=== PATIENT | male | born 1930 | race Caucasian/White ===

== ENCOUNTER 2016-09-06 18:46 | Observation (INO) | payer MEDICARE ==
[~2016-09-06] VITALS: Ht 182.9 cm; Wt 80.0 kg
[~2016-09-06 18:46] MED LIST: ALPH200C2 PO; ASPI1TAB69 PO; BETAX.25%O EACH EYE; CHOL100025 CHEW; COQ1100C PO; GALA8TAB PO; GINK120C4 PO; HYDR-3533 PO; LOSA50TA PO; LYRI50CA PO; METO25TA3 PO; NITR1SUB3 SL; NOVOLOGP2 SQ; PRESCAP5 PO; SIMV20TA PO; TERA2CAP3 PO; VITA100021 SL; ZINC50TA PO; ZOLP10TA3 PO
[2016-09-06 18:49] VITALS: BP 200/86; PULSE 63; RESP 18; TEMP 98.7; O2SAT 98
[2016-09-06] MEDS ORDERED: SODIUM CHLORIDE 0.9% FLUSH 5 ML FLUSH IVF PRN (19:15)
[2016-09-06 19:32] LABS: AUTOMATED NEUTROPHIL # 2.9 TH/MM3 (1.8-7.7); BASOPHIL % 0.5 % (0.0-2.0); EOSINOPHIL # 0.1 TH/MM3 (0-0.4); HEMATOCRIT 36.9 % (39.0-51.0); HEMO FLAGS DIFF FINAL; LYMPH % 26.7 % (9.0-44.0); LYMPHOCYTE # 1.3 TH/MM3 (1.0-4.8); MEAN CELL VOLUME 92.5 FL (80.0-100.0); MEAN CORPUSCULAR HGB CONC 34.5 % (32.0-36.0); MONO % 9.2 % (0.0-8.0); NEUT % 60.6 % (16.0-70.0); PLATELET COUNT 129 TH/MM3 (150-450); RED BLOOD COUNT 3.99 MIL/MM3 (4.50-5.90); RED CELL DISTRIBUTION WIDTH 13.4 % (11.6-17.2); WHITE BLOOD COUNT 4.8 TH/MM3 (4.0-11.0)
--- NOTE | 2016-09-06 19:35 | PD ---
HPI Chief Complaint: Neuro Symptoms/ Deficits Time Seen by Provider: 19:05 Travel History International Travel<30 days: No Contact w/Intl Traveler<30days: No Traveled to known affect area: No History of Present Illness HPI Patient 86-year-old male presents emergency department for tremors according to EVAC, according the patient he states "I think stopping happened me this morning and my heart". Patient states his been shaking of her since then. Denies any pain in his chest abdomen pelvis extremities. Patient is oriented to self only at this time. Patient's arrives and states that he has a history of vascular dementia but has never had tremors like this before and she is concerned that she is not going to take care of him at home. She states he's been shaking all over intermittently but denies loss of consciousness. She states that he is not complaining of any chest pain shortness of breath to her. She states that she has not noticed any focal weakness or facial droop. PFSH Past Medical History Hx Anticoagulant Therapy: No Arthritis: Yes Asthma: No Autoimmune Disease: No Blood Disorders: No Anxiety: No Depression: No Heart Rhythm Problems: No Cancer: Yes (PROSTATE) Cardiac Catheterization: Yes Cardiovascular Problems: Yes High Cholesterol: Yes Chemotherapy: No Chest Pain: Yes Congestive Heart Failure: No COPD: No Cerebrovascular Accident: No Coronary Artery Disease: Yes Diabetes: Yes Diminished Hearing: No Endocrine: Yes GERD: No Glaucoma: Yes Genitourinary: No Headaches: No Hepatitis: No Hiatal Hernia: No Hypertension: Yes Immune Disorder: No Kidney Stones: No Musculoskeletal: Yes Neurologic: No Psychiatric: No Reproductive: No Respiratory: No Migraines: No Myocardial Infarction: No Radiation Therapy: No Renal Failure: No Seizures: No Sickle Cell Disease: No Sleep Apnea: No Thyroid Disease: No Ulcer: No Past Surgical History Abdominal Surgery: No AICD: No Appendectomy: No Arteriovenous Shunt: No Cardiac Surgery: Yes (CABG 2004) Cholecystectomy: No Coronary Artery Bypass Graft: Yes Ear Surgery: No Endocrine Surgery: No Eye Surgery: Yes (CATARACT [id number]) Genitourinary Surgery: No Gynecologic Surgery: No Insulin Pump: No Joint Replacement: No Neurologic Surgery: No Oral Surgery: No Pacemaker: No Thoracic Surgery: No Other Surgery: Yes Social History Alcohol Use: Yes (GLASS WINE DAILY) Tobacco Use: No Substance Use: No Allergies-Medications (Allergen,Severity, Reaction): Coded Allergies: Effient (Verified Allergy, Severe, Hives, 07/25/16) Lisinopril (Verified Allergy, Severe, cough, 07/25/16) Plavix (Verified Allergy, Unknown, 07/25/16) Reported Meds & Prescriptions Reported Meds & Active Scripts Active Lortab (Hydrocodone-Acetaminophen) 5-325 Mg Tab 1 Tab PO Q6H PRN Reported Novolin 70-30 Inj (Insulin Human Isoph/Insulin Regular) 1,000 Unit/10 Ml Vial 14 Units SQ AC DINNER Novolin 70-30 Inj (Insulin Human Isoph/Insulin Regular) 1,000 Unit/10 Ml Vial 24 Units SQ AC BREAKFAST Preservision Areds 2 (Multiple Vitamins W/ Minerals) 1 Cap 1 Cap PO DAILY Ginkgo Biloba 120 Mg Cap 1 Cap PO DAILY Alpha Lipoic Acid 200 Mg Cap 200 Mg PO DAILY Vitamin D3 (Cholecalciferol) 1,000 Unit Chew 1,000 Units CHEW DAILY Coq10 (Coenzyme Q10 (Ubidecarenone)) 100 Mg Cap 1 Tab PO DAILY Zinc 50 Mg Tab 50 Mg PO DAILY Vitamin B-12 (Cyanocobalamin) 1,000 Mcg Subl 1,000 Mcg SL DAILY Zolpidem (Zolpidem Tartrate) 10 Mg Tab 10 Mg PO HS PRN Betoptic-S Opth Drops (Betaxolol HCl) 0.25% Susp 1 Drop EACH EYE BID Nitroglycerin SL (Nitroglycerin) 0.4 Mg Subl 0.4 Mg SL DIRECTED PRN ONE TABLET UNDER THE TONGUE NEEDED FOR CHEST PAIN, MAY REPEAT EVERY FIVE MINUTES FOR A TOTAL OF 3 DOSES OR CALL 911 IF NO RELIEF Lyrica (Pregabalin) 50 Mg Cap 50 Mg PO DAILY Aspirin 81 Mg Tabdr 81 Mg PO DAILY Galantamine (Galantamine Hydrobromide) 8 Mg Tab 16 Mg PO DAILY Terazosin (Terazosin HCl) 2 Mg Cap 4 Mg PO HS Losartan (Losartan Potassium) 50 Mg Tab 50 Mg PO DAILY Metoprolol Tartrate 25 Mg Tab 25 Mg PO BID Simvastatin 20 Mg Tab 20 Mg PO DAILY Review of Systems ROS Limitations: Altered Mental Status Physical Exam Narrative GENERAL: Well-developed well-nourished in no apparent distress SKIN: Warm and dry. HEAD: Atraumatic. Normocephalic. EYES: Pupils equal and round. No scleral icterus. No injection or drainage. ENT: No nasal bleeding or discharge. Mucous membranes pink and moist. NECK: Trachea midline. No JVD. CARDIOVASCULAR: Regular rate and rhythm. No murmur appreciated. RESPIRATORY: No accessory muscle use. Clear to auscultation. Breath sounds equal bilaterally. GASTROINTESTINAL: Abdomen soft, non-tender, nondistended. Hepatic and splenic margins not palpable. MUSCULOSKELETAL: No obvious deformities. No clubbing. No cyanosis. No edema. NEUROLOGICAL: Awake and alert oriented to self only.. Cranial nerves II through XII are grossly intact and nonfocal, 5 out of 5 strength in all 4 extremities. Patient elicits some jerking motions as well as some ataxia in both upper extremities. More limited ataxia in the lower extremities. When testing the patient's reflexes in the lower extremities patient jumps in the upper extremities and likewise on tests and the reflexes in the upper extremities patient jumps in the lower extremities PSYCHIATRIC: Appropriate mood and affect; insight and judgment normal. Data Data Last Documented VS Vital Signs Date Time Temp Pulse Resp B/P Pulse Ox O2 Delivery O2 Flow Rate FiO2 09/06/16 19:22 Nasal Cannula 2 09/06/16 18:49 98.7 63 18 200/86 98 Orders Electrocardiogram (09/06/16 19:06) Ckmb (Isoenzyme) Profile (09/06/16 19:06) Complete Blood Count With Diff (09/06/16 19:06) Comprehensive Metabolic Panel (09/06/16 19:06) Magnesium (Mg) (09/06/16 19:06) Prothrombin Time / Inr (Pt) (09/06/16 19:06) Act Partial Throm Time (Ptt) (09/06/16 19:06) Troponin I (09/06/16 19:06) Ecg Monitoring (09/06/16 19:06) Bilateral Bp Monitoring (09/06/16 19:06) Iv Access Insert/Monitor (09/06/16 19:06) Oximetry (09/06/16 19:06) Oxygen Administration (09/06/16 19:06) Sodium Chloride 0.9% Flush (Ns Flush) (09/06/16 19:15) Ct Brain W/O Iv Contrast(Rout) (09/06/16 ) Chest, Single Ap (09/06/16 ) Admit Order (Ed Use Only) (09/06/16 ) Labs Laboratory Tests Test 09/06/16 19:15 White Blood Count 4.8 TH/MM3 Red Blood Count 3.99 MIL/MM3 Hemoglobin 12.7 GM/DL Hematocrit 36.9 % Mean Corpuscular Volume 92.5 FL Mean Corpuscular Hemoglobin 32.0 PG Mean Corpuscular Hemoglobin 34.5 % Concent Red Cell Distribution Width 13.4 % Platelet Count 129 TH/MM3 Mean Platelet Volume 10.4 FL Neutrophils (%) (Auto) 60.6 % Lymphocytes (%) (Auto) 26.7 % Monocytes (%) (Auto) 9.2 % Eosinophils (%) (Auto) 3.0 % Basophils (%) (Auto) 0.5 % Neutrophils # (Auto) 2.9 TH/MM3 Lymphocytes # (Auto) 1.3 TH/MM3 Monocytes # (Auto) 0.4 TH/MM3 Eosinophils # (Auto) 0.1 TH/MM3 Basophils # (Auto) 0.0 TH/MM3 CBC Comment DIFF FINAL Differential Comment Prothrombin Time 11.8 SEC Prothromb Time International 1.1 RATIO Ratio Activated Partial 26.6 SEC Thromboplast Time Sodium Level 139 MEQ/L Potassium Level 4.4 MEQ/L Chloride Level 103 MEQ/L Carbon Dioxide Level 27.6 MEQ/L Anion Gap 8 MEQ/L Blood Urea Nitrogen 18 MG/DL Creatinine 1.07 MG/DL Estimat Glomerular Filtration 66 ML/MIN Rate Random Glucose 314 MG/DL Calcium Level 8.3 MG/DL Magnesium Level 2.0 MG/DL Total Bilirubin 0.6 MG/DL Aspartate Amino Transf 15 U/L (AST/SGOT) Alanine Aminotransferase 20 U/L (ALT/SGPT) Alkaline Phosphatase 91 U/L Total Creatine Kinase 81 U/L Troponin I LESS THAN 0.02 NG/ML Total Protein 6.3 GM/DL Albumin 3.4 GM/DL [facility] Medical Decision Making Medical Screen Exam Complete: Yes Emergency Medical Condition: Yes Differential Diagnosis Electrolyte imbalance including hyponatremia, acute cerebral CVA seems unlikely , cerebellar dysfunction as a possibility, cerebellar stroke is possible. Narrative Course Patient 86-year-old male with quite a convoluted presentation. He has these jumping and ataxic motions of the upper extremities. Lower limit of lower externa is. He is able to ambulate to the bathroom albeit with some unsteadiness but does not to appear to be having any truncal ataxia. CT head is negative elect lites within normal limits. I discussed with the patient and his that they could consider doing outpatient workup for these symptoms. His is concerned for his safety at home and wishes for him to be admitted for further workup I am amenable to this. Patient was discussed with Dr. Kenn Watson will admit for further workup. Diagnosis Primary Impression: Tremors of nervous system Additional Impression: Ataxia Admitting Information Admitting Physician Requests: Observation Condition: Stable Christiano Bledsoe MD Sep 06, 2016 19:34
[2016-09-06 19:44] LABS: APTT (PATIENT) 26.6 SEC (24.3-30.1); INTERNATIONAL NORMALIZED RATIO 1.1 RATIO; PROTHROMBIN TIME - PATIENT 11.8 SEC (9.8-11.6)
[2016-09-06 19:55] LABS: ANION GAP 8 MEQ/L (5-15); AST (GOT) 15 U/L (15-37); BICARBONATE 27.6 MEQ/L (21.0-32.0); BLOOD UREA NITROGEN 18 MG/DL (7-18); CHLORIDE 103 MEQ/L (98-107); GLOMERULAR FILTRATION RATE 66 ML/MIN (>89); POTASSIUM 4.4 MEQ/L (3.5-5.1); SODIUM (NA) 139 MEQ/L (136-145)
[2016-09-06 20:00] LABS: ALKALINE PHOSPHATASE 91 U/L (45-117); ALT (GPT) 20 U/L (12-78); TOTAL BILIRUBIN ADULT 0.6 MG/DL (0.2-1.0)
[2016-09-06 20:04] LABS: CREATINE KINASE 81 U/L (39-308)
--- NOTE | 2016-09-06 21:05 | RADRPT ---
EXAM DATE/TIME: 09/06/2016 20:02 [facility] COMPARISON: CHEST SINGLE AP, July 25, 2016, 9:46. INDICATIONS : Patient has been short of breath since this morning. MEDICAL HISTORY : Diabetes mellitus type II. SURGICAL HISTORY : None. ENCOUNTER: Initial ACUITY: 1 day PAIN SCORE: 0/10 LOCATION: Bilateral chest FINDINGS: No infiltrate, effusion or pneumothorax demonstrated. Heart size stable, upper limits of normal. Patient has had previous median sternotomy. CONCLUSION: No evidence of acute cardiopulmonary disease. Jose Juan Freitas MD on September 06, 2016 at 21:03 Board Certified Radiologist. This report was verified electronically.
--- NOTE | 2016-09-06 21:14 | RADRPT ---
EXAM DATE/TIME: 09/06/2016 20:41 [facility] COMPARISON: No previous studies available for comparison. INDICATIONS : Altered mental status today. RADIATION DOSE: 56.35 CTDIvol (mGy) MEDICAL HISTORY : Cardiovascular disease. Hypertension. Carcinoma, prostate. SURGICAL HISTORY : CABG ENCOUNTER: Initial ACUITY: 1 day PAIN SCALE: 0/10 LOCATION: cranial TECHNIQUE: Multiple contiguous axial images were obtained of the head. Using automated exposure control and adj ustment of the mA and/or kV according to patient size, radiation dose was kept as low as reasonably a chievable to obtain optimal diagnostic quality images. FINDINGS: CEREBRUM: The ventricles are normal for age. No evidence of midline shift, mass lesion, hemorrhage or acute in farction. No extra-axial fluid collections are seen. Chronic low attenuation seen in the periventric ular white matter. POSTERIOR FOSSA: The cerebellum and brainstem are intact. The 4th ventricle is midline. The cerebellopontine angle i s unremarkable. EXTRACRANIAL: The visualized portion of the orbits is intact. SKULL: The calvaria is intact. No evidence of skull fracture. CONCLUSION: No acute intracranial abnormality demonstrated. Mild chronic white matter changes. Jose Juan Freitas MD on September 06, 2016 at 21:12 Board Certified Radiologist. This report was verified electronically.
[2016-09-06] MEDS ORDERED: ONDANSETRON HCL 4 MG/2 ML VIAL IVP PRN (22:30)
[2016-09-06] MEDS ORDERED: NALOXONE HCL 0.4 MG/ML AMP IV PRN (22:30)
[2016-09-06] MEDS ORDERED: SODIUM CHLORIDE 0.9% FLUSH 5 ML FLUSH FLUSH PRN (22:30)
[2016-09-06] MEDS ORDERED: ACETAMINOPHEN 325 MG TAB PO PRN (22:30)
[2016-09-06] MEDS ORDERED: BISACODYL 10 MG SUPP PR PRN (22:30)
[2016-09-06] MEDS ORDERED: TERAZOSIN HCL 1 MG CAP PO SCH (22:30)
[2016-09-06] MEDS ORDERED: MAGNESIUM HYDROXIDE SUSP 30 ML CUP PO PRN (22:30)
[2016-09-06] MEDS ORDERED: NOVO7030P2 SQ ×2 (22:37)
[2016-09-07] VITALS (8 sets, daily range): BP systolic 131–190; BP diastolic 65–91; PULSE 9–92; RESP 16–20; TEMP 96.7–98.4; O2SAT 94–100
--- NOTE | 2016-09-07 00:11 | RADRPT ---
EXAM DATE/TIME: 09/06/2016 22:54 [facility] COMPARISON: No previous studies available for comparison. INDICATIONS : TIA. MEDICAL HISTORY : Myocardial infarction. Hypertension. Hypercholesterolemia. Prostate cancer. SURGICAL HISTORY : CABG. Cataract surgery bilateral. ENCOUNTER: Initial ACUITY: 1 day PAIN SCORE: 0/10 LOCATION: Bilateral neck PEAK SYSTOLIC VELOCITIES (cm/sec): ICA/CCA RATIO: Right: 1.7 Left: 1.2 ICA: Right: 104 Left: 92 CCA: Right: 61 Left: 79 ECA: Right: 66 Left: 159 VERTEBRAL: Right: 45 antegrade Left: 45 antegrade Elevated flow velocities and ICA/CCA ratios have been found to correlate with increased degrees of vessel stenosis, calculated as percentage of diameter relative to a normal segment of distal ICA/CCA FINDINGS: RIGHT CAROTID: There is mild calcified and noncalcified plaque in the carotid bulbs. The waveforms are within anastacia l limits. LEFT CAROTID: There are calcified nodules in plaque in the carotid bulb. The waveforms are within normal limits. VERTEBRAL ARTERIES: Antegrade flow is seen in both vertebral arteries. MISCELLANEOUS: None. CONCLUSION: 1. Mild atherosclerotic disease within the carotid bulbs bilaterally. However, velocity measurements indicate less than 50% stenosis. 2. There is antegrade flow within both vertebral arteries. Jose Juan Price MD on September 07, 2016 at 0:08 Board Certified Radiologist. This report was verified electronically.
[2016-09-07] MEDS: METOPROLOL TARTRATE 25 MG TAB PO SCH ×2 (00:14→08:08)
[2016-09-07] MEDS: BETAXOLOL HCL 0.25% EACH EYE SCH ×2 (00:15→08:07)
[2016-09-07] MEDS: 1/2 NS + KCL 20 MEQ INJ 1,000 ML IV SCH ×2 (00:16→11:07)
[2016-09-07 04:47] LABS: AUTOMATED NEUTROPHIL # 2.9 TH/MM3 (1.8-7.7); BASOPHIL % 0.4 % (0.0-2.0); EOSINOPHIL # 0.1 TH/MM3 (0-0.4); EOSINOPHIL % 2.5 % (0.0-4.0); HEMATOCRIT 34.6 % (39.0-51.0); HEMO FLAGS DIFF FINAL; LYMPH % 21.7 % (9.0-44.0); MEAN CELL VOLUME 92.3 FL (80.0-100.0); MEAN CORPUSCULAR HEMOGLOBIN 31.9 PG (27.0-34.0); MEAN CORPUSCULAR HGB CONC 34.5 % (32.0-36.0); NEUT % 66.4 % (16.0-70.0); PLATELET COUNT 114 TH/MM3 (150-450); RED BLOOD COUNT 3.75 MIL/MM3 (4.50-5.90); RED CELL DISTRIBUTION WIDTH 13.3 % (11.6-17.2); WHITE BLOOD COUNT 4.4 TH/MM3 (4.0-11.0)
[2016-09-07 05:11] LABS: ANION GAP 6 MEQ/L (5-15); BICARBONATE 28.4 MEQ/L (21.0-32.0); BLOOD UREA NITROGEN 21 MG/DL (7-18); CHLORIDE 105 MEQ/L (98-107); GLOMERULAR FILTRATION RATE 77 ML/MIN (>89); POTASSIUM 4.1 MEQ/L (3.5-5.1); SODIUM (NA) 139 MEQ/L (136-145)
[2016-09-07 05:37] LABS: FREE T4 1.26 NG/DL (0.76-1.46)
[2016-09-07] MEDS: INSULIN ASPART SUPPLEMENTAL SCALE SQ SCH ×3 (05:54→16:31)
[2016-09-07] MEDS ORDERED: LOSARTAN 50 MG TAB PO SCH (09:00)
[2016-09-07] MEDS ORDERED: ASPIRIN EC 81 MG TABEC PO SCH (09:00)
[2016-09-07] MEDS ORDERED: PREGABALIN 25 MG CAP PO SCH (09:00)
[2016-09-07] MEDS ORDERED: PRAVASTATIN SOD 40 MG TAB PO SCH (09:00)
[2016-09-07] MEDS ORDERED: SODIUM CHLORIDE 0.9% FLUSH 5 ML FLUSH FLUSH SCH (09:00)
[2016-09-07] MEDS ORDERED: GALANTAMINE HYDROBROMIDE 4 MG TAB PO SCH (09:00)
--- NOTE | 2016-09-07 10:41 | HHI.HP ---
HPI Service [facility] Hospitalists Primary Care Physician Dru Gutiérrez MD Admission Diagnosis Ataxia Travel History International Travel<30 Days: No Contact w/Intl Traveler <30 Da: No Traveled to Known Affected Are: No History of Present Illness Mr. Cobos is an 86 y/o male with IDDM, HTN, CAD with hx of KS, hyperlipidemia, and vascular dementia. Pt presented to the ED on 09/06/16 with complaints of being shaky and unsteady on his feet. Pt has a hx of tremors but this was reportedly worse than tremors he has had in the past. Head CT noted no acute intracranial abnormality and mild chronic white matter changes. Pts did not feel that she could handle him at home. Pt was admitted for further workup of his tremors and ataxia and for SNF placement. Pts reports that they have had issues controlling his blood sugars at home. They have had some recent medication changes by the Graphic Design Teacher to NovoLog Mix 70/30 24-26 units in the AM and 14 units in PM. Review of Systems Neurologic: COMPLAINS OF: Abnormal gait, Tremor Past Family Social History Past Medical History Alzheimer's dementia Essential tremor CAD with hx of KS s/p CABG and stenting IDDM Peripheral neuropathy HTN Hyperlipidemia GERD Glaucoma PVD Pulmonary nodules noted on CT in 07/1016 [facility] followed by GI Hx of prostate cancer Past Surgical History CABG x 3 PTCA with stenting Bilateral cataract surgery Bilateral blepharoplasty in 2006 Prostate biopsy Reported Medications -Zolpidem 10 Mg PO HS PRN -Betoptic-S Opth Drops 0.25% Susp 1 Drop EACH EYE BID -Nitroglycerin SL (Nitroglycerin) 0.4 Mg Subl 0.4 Mg SL DIRECTED PRN -Aspirin 81 Mg PO DAILY -Galantamine 16 Mg PO DAILY -Terazosin 4 Mg PO HS -Metoprolol Tartrate 25 Mg PO BID -Simvastatin 20 Mg PO DAILY -Novolin 70-30 Inj 14 Units SQ AC DINNER -Novolin 70-30 Inj 24 Units SQ AC BREAKFAST --Lyrica 50 Mg PO DAILY PRN --Losartan 50 Mg PO DAILY (?BID) ?Lortab 5-325 Mg Tab 1 Tab PO Q6H PRN Preservision Areds 2 (Multiple Vitamins W/ Minerals) 1 Cap 1 Cap PO DAILY Ginkgo Biloba 120 Mg Cap 1 Cap PO DAILY Alpha Lipoic Acid 200 Mg Cap 200 Mg PO DAILY Vitamin D3 (Cholecalciferol) 1,000 Unit Chew 1,000 Units CHEW DAILY Coq10 (Coenzyme Q10 (Ubidecarenone)) 100 Mg Cap 1 Tab PO DAILY Zinc 50 Mg Tab 50 Mg PO DAILY Vitamin B-12 (Cyanocobalamin) 1,000 Mcg Subl 1,000 Mcg SL DAILY Allergies: Coded Allergies: Effient (Verified Allergy, Severe, Hives, 07/25/16) Lisinopril (Verified Allergy, Severe, cough, 07/25/16) Plavix (Verified Allergy, Unknown, 07/25/16) Family History Sister with hx of gastric cancer Father with hx of HTN Mother with hx of asthma Social History Hx of tobacco use Hx of regular alcohol use Pt is currently Physical Exam Vital Signs Vital Signs Date Time Temp Pulse Resp B/P Pulse Ox O2 Delivery O2 Flow Rate FiO2 09/07/16 08:04 61 18 177/77 100 Room Air 09/07/16 03:54 62 09/07/16 03:31 97.4 55 18 135/65 96 09/07/16 00:00 98.4 54 18 190/91 96 09/06/16 19:22 Nasal Cannula 2 09/06/16 18:49 98.7 63 18 200/86 98 Physical Exam GENERAL: This is a well-nourished, well-developed patient, in no apparent distress. HEENT: Atraumatic. Normocephalic. No temporal or scalp tenderness. No scleral icterus. Airway patent. NECK: Trachea midline, supple, nontender. CARDIO: Regular. RESP: CTA bilaterally. No wheezes, rales, or rhonchi. ABD: +BS, soft, non-tender, nondistended. EXT: Extremities without clubbing, cyanosis, or edema. NEURO: Awake and alert. Motor and sensory grossly within normal limits. Normal speech. Laboratory Laboratory Tests Test 09/06/16 09/07/16 09/07/16 19:15 00:30 04:17 White Blood Count 4.8 4.4 Red Blood Count 3.99 3.75 Hemoglobin 12.7 12.0 Hematocrit 36.9 34.6 Mean Corpuscular Volume 92.5 92.3 Mean Corpuscular Hemoglobin 32.0 31.9 Mean Corpuscular Hemoglobin 34.5 34.5 Concent Red Cell Distribution Width 13.4 13.3 Platelet Count 129 114 Mean Platelet Volume 10.4 10.5 Neutrophils (%) (Auto) 60.6 66.4 Lymphocytes (%) (Auto) 26.7 21.7 Monocytes (%) (Auto) 9.2 9.0 Eosinophils (%) (Auto) 3.0 2.5 Basophils (%) (Auto) 0.5 0.4 Neutrophils # (Auto) 2.9 2.9 Lymphocytes # (Auto) 1.3 1.0 Monocytes # (Auto) 0.4 0.4 Eosinophils # (Auto) 0.1 0.1 Basophils # (Auto) 0.0 0.0 CBC Comment DIFF FINAL DIFF FINAL Differential Comment Prothrombin Time 11.8 Prothromb Time International 1.1 Ratio Activated Partial 26.6 Thromboplast Time Sodium Level 139 139 Potassium Level 4.4 4.1 Chloride Level 103 105 Carbon Dioxide Level 27.6 28.4 Anion Gap 8 6 Blood Urea Nitrogen 18 21 Creatinine 1.07 0.93 Estimat Glomerular Filtration 66 77 Rate Random Glucose 314 337 Calcium Level 8.3 8.4 Magnesium Level 2.0 2.0 Total Bilirubin 0.6 Aspartate Amino Transf 15 (AST/SGOT) Alanine Aminotransferase 20 (ALT/SGPT) Alkaline Phosphatase 91 Total Creatine Kinase 81 Troponin I LESS THAN 0.02 Total Protein 6.3 Albumin 3.4 Ammonia 30 Vitamin B12 Level 986 Folate GREATER THAN 20.0 Free Thyroxine 1.26 Thyroid Stimulating Hormone 1.380 3rd Gen Result Diagram: 09/07/1641609/07/16416 Imaging Last Impressions Head CT 09/06/16 Signed Impressions: Service Date/Time: September 20:41 - CONCLUSION: No acute intracranial abnormality demonstrated. Mild chronic white matter changes. Jose Juan Freitas MD Chest X-Ray 09/06/16 Signed Impressions: Service Date/Time: September 20:02 - CONCLUSION: No evidence of acute cardiopulmonary disease. Jose Juan Freitas MD Carotid Artery Ultrasound 09/06/16 Signed Impressions: Service Date/Time: September 22:54 - CONCLUSION: 1. Mild atherosclerotic disease within the carotid bulbs bilaterally. However, velocity measurements indicate less than 50%% stenosis. 2. There is antegrade flow within both vertebral arteries. Jose Juan Price MD Septic Shock Reassessment Heart: Regular rate and rhythm Lungs: Clear Skin: Warm Peripheral Pulses: Bounding Right Radial Bounding Left Radial Bounding Right Popliteal Bounding Left Popliteal Bounding Right Dorsalis Pedis Bounding Left Dorsalis Pedis Bounding Right Posterior Tibial Bounding Left Posterior Tibial Assessment and Plan Problem List: (1) Ataxia Status: Acute Plan: - Pt admitted with tremors and difficulty ambulating. - Head CT (09/06/16) --> No acute intracranial abnormality demonstrated. Mild chronic white matter changes - Carotid US (09/07/16) --> Mild atherosclerotic disease within the carotid bulbs bilaterally. However, velocity measurements indicate less than 50% stenosis. There is antegrade flow within both vertebral arteries - MRI/MRA Brain is pending. - TSH/Free T4/B12/Folate/RPR are all WNL - PT evaluation is pending. - Pt will need placement at SNF later today if MRI/MRA are negative. (2) Dementia Status: Chronic Plan: - Cont. home meds (3) DM (diabetes mellitus) Status: Chronic Plan: - BS readings have been elevated - Pts has had some recent medication changes due to difficulty managing taking insulin 4 times a day at home. - Pts reports that he was recently changed to NovoLog 70/30 24-26 units in AM and 14 units in PM - We will discharge the pt on Levemir 12 units BID and NovoLog SSI while at rehab. (4) Hypertension Status: Chronic Plan: - Cont. home meds (5) Hyperlipidemia Status: Chronic Plan: - Cont. home meds (6) CAD (coronary artery disease) Status: Chronic Assessment and Plan Patient examined. Assessment and plan formulated with Torrie Null PA-C. I agree with the above. Problem Qualifiers (1) Dementia: (2) DM (diabetes mellitus): Torrie Null Sep 07, 2016 10:41 Joel Watson DO Sep 12, 2016 18:56
[2016-09-07 10:47] LABS: RAPID PLASMA REAGIN SCREEN NON-REACTIVE (NON-REACTVE)
--- NOTE | 2016-09-07 11:32 | RADRPT ---
EXAM DATE/TIME: 09/07/2016 10:22 [facility] COMPARISON: No previous studies available for comparison. INDICATIONS : Altered mental status. MEDICAL HISTORY : Hypertension. Diabetes mellitus type 2. Carcinoma, prostate. SURGICAL HISTORY : CABG ENCOUNTER: Subsequent ACUITY: 2 day PAIN SCORE: 0/10 LOCATION: cranial TECHNIQUE: Multiplanar, multisequence MRI of the brain was performed without contrast. FINDINGS: CEREBRUM: The ventricles are normal for age. No evidence of midline shift, mass lesion, hemorrhage or acute in farction. No extraaxial fluid collections are seen. The pituitary gland and suprasellar cistern are normal in configuration. WHITE MATTER: Age-appropriate periventricular white matter chronic ischemic change. POSTERIOR FOSSA: The cerebellum and brainstem are intact. The 4th ventricle is midline. The cerebellopontine angle is unremarkable. The cerebellar tonsils are normal in position. DIFFUSION IMAGING: No focal areas of restricted diffusion are seen. No evidence of acute infarction. EXTRACRANIAL: The visualized portions of the orbits and paranasal sinuses are unremarkable. CONCLUSION: No acute intracranial findings. Tony Lomas MD on September 07, 2016 at 11:26 Board Certified Radiologist. This report was verified electronically.
--- NOTE | 2016-09-07 11:35 | RADRPT ---
EXAM DATE/TIME: 09/07/2016 10:22 [facility] COMPARISON: MRI BRAIN W/O CONTRAST, September 07, 2016, 10:22. INDICATIONS : Altered mental status. MEDICAL HISTORY : Hypertension. Diabetes mellitus type 2. Carcinoma, prostate. SURGICAL HISTORY : CABG ENCOUNTER: Subsequent ACUITY: 2 day PAIN SCORE: 0/10 LOCATION: cranial Please note a normal MRA of the brain does not entirely exclude the possibility of a small aneurysm, nor the possibility of distal intracranial vessel disease. TECHNIQUE: 3D time of flight MRA was performed. Source images, multiplanar STS MIP, and 3D volume MIP reconstru ctions were reviewed. FINDINGS: There is excellent visualization of the major intracranial arteries out to the second-order branch ve ssels. There is no evidence for aneurysm, vessel truncation or stenosis, and no evidence for vascula r malformation. CONCLUSION: MRA of the brain within normal limits. Tony Lomas MD on September 07, 2016 at 11:30 Board Certified Radiologist. This report was verified electronically.
[2016-09-07] MEDS ORDERED: NOVOLOGSS SQ (12:25)
[2016-09-07] MEDS ORDERED: LEVEMIR SQ (12:25)
[2016-09-07] MEDS ORDERED: ALPR.25 PO (12:50)
--- NOTE | 2016-09-07 14:51 | EKG ---
Date Performed: 09/06/2016 Time Performed: 19:36:37 PTAGE: 86 years EKG: Sinus rhythm WITH OCCASIONAL VENTRICULAR PREMATURE COMPLEXES SINCE PRIOR TRACING AND WHEN ALLOWING FOR THE ARTIFA CT ON PRESENT TRACING THERE HAS BEEN NO OVERT SERIAL CHANGE ABNORMAL ECG PREVIOUS TRACING : 07/25/2016 09.18 DOCTOR: Jessica Barbosa Interpretating Date/Time 09/07/2016 14:51:28
== END 2016-09-07 19:29 ==
LOC: NEDAMB 18:46 → NEDA 22:20 → NEDH 09-07 06:35 → NEPGCP 09-07 11:43
PROVIDERS: ADMIT Hospitalist; ATTEND Hospitalist
DX: R27.0 Ataxia, unspecified (principal); F01.50 Vascular dementia, unspecified severity, without behavioral disturbance, psychotic disturbance, mood disturbance, and anxiety; G30.9 Alzheimer's disease, unspecified; E11.9 Type 2 diabetes mellitus without complications; E78.5 Hyperlipidemia, unspecified; I73.9 Peripheral vascular disease, unspecified; I65.23 Occlusion and stenosis of bilateral carotid arteries; I10 Essential (primary) hypertension; I25.10 Atherosclerotic heart disease of native coronary artery without angina pectoris; E78.00 Pure hypercholesterolemia, unspecified; H40.9 Unspecified glaucoma; I25.2 Old myocardial infarction; R94.31 Abnormal electrocardiogram [ECG] [EKG]; K21.9 Gastro-esophageal reflux disease without esophagitis; Z79.4 Long term (current) use of insulin; Z85.46 Personal history of malignant neoplasm of prostate; Z87.891 Personal history of nicotine dependence; Z95.1 Presence of aortocoronary bypass graft
CPT/HCPCS: 70450; 70544; 70551; 71010; 80048; 80053; 82140; 82550; 82607; 82746; 82948; 83735; 84439; 84443; 84484; 85025; 85610; 85730; 86592; 93005; 93880; 96372; 97163; 99285; G0378; G8987; G8988; J1815